=== PATIENT | female | born 1995 | race Caucasian/White ===

== ENCOUNTER 2016-11-27 20:53 | Observation (INO) | payer OTHER ==
[2016-11-27] MEDS ORDERED: methylPREDNISolone SOD SUCCI 125 MG/2 ML VIAL IV STA (21:38)
--- NOTE | 2016-11-27 21:49 | ED ---
General Adult HPI - General Chief complaint: Neuro Symptoms/Deficit Stated complaint: MS; loss of feeling in right leg Time Seen by Provider: 11/27/16 21:25 Source: patient, family, RN notes reviewed, old records reviewed Mode of arrival: ambulatory Limitations: no limitations - History of Present Illness Initial comments: Chief complaint history of present illness this is a 21-year-old female with acute exacerbation of her MS. Patient reports several hours ago she started having numbness tingling to her right lower extremity. She reports she walk several steps in the leg almost goes out. She's had this happen before because of her MS. No other symptoms. - Related Data Home Medications Medication Instructions Recorded Confirmed No Known Home Medications [No 11/27/16 11/27/16 Known Home Medications] Allergies Allergy/AdvReac Type Severity Reaction Status Date / Time No Known Allergies Allergy Verified 11/27/16 21:17 Review of Systems ROS Statement: Those systems with pertinent positive or pertinent negative responses have been documented in the HPI. review of systems no headache chest pain shortness breath GI/ problems. Chief complaint has noted above weakness right leg decreased sensation from her knee down. All systems were otherwise reviewed.Past medical problems diagnosis of MS. Surgeries none. Family history no cancers or MS. Patient denies ALLERGIES nonsmoker nondrinker. ROS Other: All systems not noted in ROS Statement are negative. Past Medical History Past Medical History: Neurologic Disorder Additional Past Medical History / Comment(s): MS History of Any Multi-Drug Resistant Organisms: None Reported Past Surgical History: No Surgical Hx Reported Past Anesthesia/Blood Transfusion Reactions: No Reported Reaction Past Psychological History: No Psychological Hx Reported Smoking Status: Never smoker Past Alcohol Use History: Occasional Past Drug Use History: None Reported - Past Family History Mother Family Medical History: No Reported History General Exam - General Exam Comments Initial Comments: General: The patient is awake and alert,planes of weakness and numbness to her right lower extremity. Vital signs shows temperature 98.1 pulse 120 respiratory rate 20 pulse ox 99% room air blood pressure 1 weight over a 69. Eye: Pupils are equal, round and reactive to light, extra-ocular movements are intact ; there is normal conjunctiva bilaterally. No signs of icterus. Ears, nose, mouth and throat: There are moist mucous membranes Neck: The neck is supple, there is no tenderness Cardiovascular: There is a regular rate and rhythm. No murmur, rub or gallop is appreciated. Respiratory: Lungs are clear to auscultation, respirations are non-labored, breath sounds are equal. No wheezes, stridor, rales, or rhonchi. Gastrointestinal: at stomach no nausea no vomiting no diarrhea. Back: no back pain. Musculoskeletal: upper or lower extremities normal except for weakness over the past several hours to her right leg from her knee down. Able to walk several steps at a time but then she has to stop. This occurred before exacerbation of her MS. Neurological: history of MS. Current problem includes right leg from her knee including her foot. She is able to ambulate weekly for several steps before she has to stop. Skin: Skin is warm and dry and no rashes or lesions are noted. Limitations: no limitations Course Vital Signs 11/27/16 20:59 Temperature 98.1 F Pulse Rate 120 H Respiratory 20 Rate Blood Pressure 108/69 O2 Sat by Pulse 99 Oximetry Medical Decision Making - Medical Decision Making and discussed the case with the patient's neurologist Dr. escobar. He recommends admission. With Solu-Medrol 250 3 times a day with Accu-Cheks and sliding scale. patient be admitted to [facility] with consultation from Dr. Nugent. Disposition Clinical Impression: MS (multiple sclerosis) Disposition: ADMITTED IP TO THIS HOSP Condition: Fair Referrals: Katherine Allen MD [Primary Care Provider] - 1-2 days
[2016-11-27] MEDS ORDERED: NALOXONE 0.4 MG/ML 1 ML VIAL IV PRN (21:50)
[2016-11-27] MEDS ORDERED: methylPREDNISolone SOD SUCCI 125 MG/2 ML VIAL IV SCH (22:00)
[2016-11-27 22:02] LABS: Basophils % (A) 1 %; CH 30.1; CHCM 35.6; Eosinophils % (A) 0 %; HCT 41.8 % (34.0-46.0); HDW 2.84; HGB 14.3 gm/dL (11.4-16.0); Luc # (Auto) 0.19; Luc % (Auto) 3; Lymphocytes # (A) 2.5 k/uL (1.0-4.8); Lymphocytes % (A) 34 %; MCHC 34.1 g/dL (31.0-37.0); Mean Platelet Volume 7.5; Monocytes # (A) 0.4 k/uL (0-1.0); Monocytes % (A) 5 %; Neutrophils # (A) 4.2 k/uL (1.3-7.7); Neutrophils % (A) 57 %; RBC 4.92 m/uL (3.80-5.40); RDW 13.8 % (11.5-15.5); WBC 7.3 k/uL (3.8-10.6); WBC (Perox) 7.01
[2016-11-27] MEDS: SODIUM CHLORIDE 0.9% 1,000 ML IV SCH (22:04)
[2016-11-27 22:11] LABS: ALT 41 U/L (9-52); AST 24 U/L (14-36); Alkaline Phosphatase 120 U/L (38-126); Anion Gap 18 mmol/L; Blood Urea Nitrogen 5 mg/dL (7-17); Calcium 9.5 mg/dL (8.4-10.2); Carbon Dioxide 22 mmol/L (22-30); Chloride 107 mmol/L (98-107); Glucose 89 mg/dL (74-99); Non-African American GFR(MDRD) >60 (>60 ml/min/1.73 sqM); Potassium 3.5 mmol/L (3.5-5.1); Sodium 147 mmol/L (137-145); Total Bilirubin 0.2 mg/dL (0.2-1.3); Total Protein 8.6 g/dL (6.3-8.2)
[2016-11-27 23:06] VITALS: BMI 35.6
[2016-11-27] MEDS: IBUPROFEN 400 MG TAB PO PRN (23:26)
[2016-11-28] MEDS: IBUPROFEN 400 MG TAB PO PRN ×3 (04:46→23:01)
[2016-11-28] MEDS: methylPREDNISolone SOD SUCCI 250 MG in SODIUM CHLORIDE 0.9% 100 ML IVPB SCH ×4 (04:48→23:46)
[2016-11-28 07:17] LABS: Glucose,Whole Blood 150 mg/dL (75-99)
[2016-11-28] MEDS ORDERED: methylPREDNISolone SOD SUCCI 250 MG in SODIUM CHLORIDE 0.9% 100 ML IVPB SCH (08:00)
[2016-11-28] MEDS: FAMOTIDINE 20 MG TAB PO SCH ×2 (08:13→20:37)
[2016-11-28] MEDS: INSULIN LISPRO (humaLOG) 300 UNIT/3 ML VIAL SQ SCH ×4 (08:13→21:33)
[2016-11-28] MEDS ORDERED: LORazepam 2 MG/ML SYRINGE ONE (10:52)
[2016-11-28] MEDS: SODIUM CHLORIDE 0.9% 1,000 ML IV SCH (12:04)
[2016-11-28 12:11] LABS: Glucose,Whole Blood 121 mg/dL (75-99)
[2016-11-28 13:01] LABS: Hemoglobin A1C 5.5 % (4.2-6.1)
--- NOTE | 2016-11-28 13:19 | MR ---
EXAMINATION TYPE: MR brain wo/w con DATE OF EXAM: 11/28/2016 COMPARISON: Brain CT 05/26/2015, MR brain 10/01/2014 HISTORY: Patient with right leg weakness and Multiple Sclerosis TECHNIQUE: Multiplanar, multisequence images of the brain and brainstem is performed without and with IV contras t, utilizing 20 mL intravenous MultiHance . FINDINGS: Diffusion weighted images demonstrate no evidence of a recent infarct or other diffusion ab normality. There is no extra-axial fluid collection. Adjacent to the temporal horn of the right late ral ventricle in the subcortical white matter there is a focus of hyperintensity on inversion recover y and T2-weighted sequences measuring 7 mm in diameter which was not present on prior exam. No other significant interval change evident. No abnormal enhancement following contrast administration. No he morrhage or hydrocephalus. Brain volume is age appropriate. Cerebellopontine angles, corpus callosum, pituitary, cervical medullary junction are within normal limits. Midline structures demonstrate norm al morphology. The craniocervical junction appears within normal limits. Post contrast images demon strate no abnormal enhancement. The dural venous sinuses appear patent. The visualized sinuses are cl ear and the globes are intact. IMPRESSION: There is a new multiple sclerosis plaque in the right temporal lobe as described. The exa m is otherwise stable.
[2016-11-28] MEDS ORDERED: LORazepam 2 MG/ML SYRINGE IV ONE (13:30)
--- NOTE | 2016-11-28 15:39 | P.HPIM ---
History of Present Illness H&P Date: 11/28/16 Chief Complaint: Right lower extremity numbness. This is a 21-year-old female was diagnosed with multiple sclerosis by Dr. liang of comes in to the hospital with complaints of sudden onset right lower extremity numbness. Patient last had a relapse of multiple sclerosis or 1 year 8 months ago. Patient was on a control medication prior to that however got thereafter stopped taking the medication Patient denies having any headaches change in vision and chest pain nausea vomiting abdominal pain loss of bowel or bladder function. Patient states that she has sustained a fall due to the numbness. States that she believes she has enough strength however does have no positional sense. Review of Systems All systems: negative Past Medical History Past Medical History: Neurologic Disorder Additional Past Medical History / Comment(s): MS History of Any Multi-Drug Resistant Organisms: None Reported Past Surgical History: No Surgical Hx Reported Past Anesthesia/Blood Transfusion Reactions: No Reported Reaction Past Psychological History: No Psychological Hx Reported Smoking Status: Never smoker Past Alcohol Use History: Occasional Past Drug Use History: None Reported - Past Family History Mother Family Medical History: No Reported History Father Family Medical History: No Reported History Medications and Allergies Home Medications Medication Instructions Recorded Confirmed Type No Known Home Medications [No 11/27/16 11/27/16 History Known Home Medications] Allergies Allergy/AdvReac Type Severity Reaction Status Date / Time No Known Allergies Allergy Verified 11/27/16 21:17 Physical Exam Vitals: Vital Signs Temp Pulse Pulse Pulse Resp BP BP 11/28/16 13:04 98.3 F 95 20 102/56 11/28/16 08:25 97.9 F 82 18 122/70 11/28/16 04:00 98.1 F 90 18 97/58 11/27/16 23:00 97.8 F 99 18 109/71 11/27/16 22:45 97.8 F 99 18 109/71 11/27/16 22:41 97.9 F 101 H 18 110/80 11/27/16 20:59 98.1 F 120 H 20 108/69 Pulse Ox 11/28/16 13:04 95 11/28/16 08:25 97 11/28/16 04:00 96 11/27/16 23:00 98 11/27/16 22:45 98 11/27/16 22:41 99 11/27/16 20:59 99 Intake and Output 11/28/16 11/28/16 11/28/16 06:59 14:59 22:59 Intake Total 450 Balance 450 Intake: Oral 450 Other: Voiding Method Toilet # Voids 1 1 Physical exam Gen. appearance oriented 3 in no distress Neck is supple no JVD Lungs good air entry clear to auscultation no rhonchi or wheezing Heart S1-S2 heard regular rate and rhythm no murmurs appreciated Abdomen is soft nontender no organomegaly bowel sounds are intact Neurologically cranial nerves II-12 grossly intact no focal motor deficits noted. Right lower extremity fine touch is impaired Touch is noted Position sense is impaired. Strength is 5 out of 5 in all 4 activities. EOMI PERRLA Skin no abnormalities appreciated Results CBC & Chem 7: 11/27/16 21:48 11/27/16 21:48 Labs: Abnormal Lab Results - Last 24 Hours (Table) 11/27/16 11/28/16 11/28/16 Range/Units 21:48 07:15 12:07 Sodium 147 H (137-145) mmol/L BUN 5 L (7-17) mg/dL POC Glucose (mg/dL) 150 H 121 H (75-99) mg/dL Total Protein 8.6 H (6.3-8.2) g/dL Thrombosis Risk Factor Assmnt - Choose All That Apply Each Factor Represents 1 point: Obesity (BMI >25) Other Risk Factors: No Other congenital or acquired thrombophilia - If yes, enter type in comment: No Thrombosis Risk Factor Assessment Total Risk Factor Score: 1 Thrombosis Risk Factor Assessment Level: Low Risk Assessment and Plan Plan: #1 acute exacerbation of multiple sclerosis Plan MRI of the brain Neuro stress dose of steroids Neurology recommendations are noted GI prophylaxis Frequent neuro checks
[2016-11-28 16:58] LABS: Glucose,Whole Blood 141 mg/dL (75-99)
[2016-11-28 21:34] LABS: Glucose,Whole Blood 125 mg/dL (75-99)
[2016-11-29] MEDS: SODIUM CHLORIDE 0.9% 1,000 ML IV SCH ×2 (03:31→17:58)
[2016-11-29] MEDS: methylPREDNISolone SOD SUCCI 250 MG in SODIUM CHLORIDE 0.9% 100 ML IVPB SCH ×3 (05:44→18:00)
[2016-11-29 07:32] LABS: Glucose,Whole Blood 132 mg/dL (75-99)
[2016-11-29] MEDS: INSULIN LISPRO (humaLOG) 300 UNIT/3 ML VIAL SQ SCH ×4 (07:53→21:32)
[2016-11-29] MEDS: FAMOTIDINE 20 MG TAB PO SCH ×2 (11:58→21:33)
[2016-11-29 12:06] LABS: Glucose,Whole Blood 127 mg/dL (75-99)
[2016-11-29 17:12] LABS: Glucose,Whole Blood 139 mg/dL (75-99)
[2016-11-29 21:21] LABS: Glucose,Whole Blood 144 mg/dL (75-99)
[2016-11-30] MEDS: methylPREDNISolone SOD SUCCI 250 MG in SODIUM CHLORIDE 0.9% 100 ML IVPB SCH ×5 (05:57→19:19)
[2016-11-30 07:24] LABS: Glucose,Whole Blood 134 mg/dL (75-99)
[2016-11-30] MEDS: INSULIN LISPRO (humaLOG) 300 UNIT/3 ML VIAL SQ SCH ×4 (08:02→21:21)
[2016-11-30] MEDS: FAMOTIDINE 20 MG TAB PO SCH ×2 (08:02→21:16)
[2016-11-30] MEDS: SODIUM CHLORIDE 0.9% 1,000 ML IV SCH ×2 (08:05→22:35)
[2016-11-30] MEDS: BUTALB/APAP/CAFF 50-325-40MG TAB PO PRN ×3 (08:34→17:42)
--- NOTE | 2016-11-30 11:48 | P.PN ---
Subjective Progress note being dictated for Dr. Draper Interval history:This is a 21-year-old female was diagnosed with multiple sclerosis by Dr. liang of comes in to the hospital with complaints of sudden onset right lower extremity numbness. Patient last had a relapse of multiple sclerosis or 1 year 8 months ago. Patient was on a control medication prior to that however got thereafter stopped taking the medication. Patient denies having any headaches change in vision and chest pain nausea vomiting abdominal pain loss of bowel or bladder function. Patient states that she has sustained a fall due to the numbness. States that she believes she has enough strength however does have no positional sense. 11/29/2016 maintained on high-dose IV steroids. Feels stronger, numbness improving. Requiring walker to ambulate. MRI reporting new multiple sclerosis plaque in the right temporal lobe. Denies chest pain, palpitations or increasing shortness of breath. 11/30/2016 developed a headache last night that persists. Received Fioricet, improving. Numbness continues to improve. Continues to require a walker with ambulation. Last dose of steroids scheduled for midnight. Objective - Vital Signs Vital signs: Vital Signs Temp 97.8 F 11/29/16 20:11 Pulse 87 11/29/16 20:11 Resp 20 11/29/16 20:11 BP 139/76 11/29/16 20:11 Pulse Ox 96 11/29/16 20:11 Intake & Output 11/29/16 11/29/16 11/30/16 06:59 18:59 06:59 Intake Total 400 Balance 400 Intake: Oral 400 Other: Voiding Method Toilet # Voids 1 1 - Exam Gen. appearance oriented 3 in no acute distress Neck is supple no JVD, oral mucosa moist Lungs clear to auscultation no rhonchi , crackles or wheezing Heart S1-S2 heard regular rate and rhythm no murmurs, rubs or gallops Abdomen is soft nontender no organomegaly bowel sounds present Neurologically cranial nerves II-12 grossly intact no focal motor deficits noted. Right lower extremity fine touch is mildly impaired-improving, Strength is 5 out of 5 in all 4 activities. EOMI PERRLA Skin no abnormalities appreciated - Labs CBC & Chem 7: 11/27/16 21:48 11/27/16 21:48 Labs: Abnormal Lab Results - Last 24 Hours (Table) 11/29/16 11/29/16 11/29/16 Range/Units 07:28 12:04 17:09 POC Glucose (mg/dL) 132 H 127 H 139 H (75-99) mg/dL 11/29/16 Range/Units 21:11 POC Glucose (mg/dL) 144 H (75-99) mg/dL Assessment and Plan Plan: #1 acute exacerbation of multiple sclerosis Plan: Continue on current medication regime ,monitoring and symptomatic treatment. Continue on high-dose IV steroids with last dose scheduled at midnight. Discharge planning in progress for a.m. The impression and plan of care has been dictated as directed. : I performed a H&P examination of this patient and discussed the same with the dictator. I agree with the dictator's note. Any additional findings/opinions/ etc. will be noted.
[2016-11-30 12:11] LABS: Glucose,Whole Blood 123 mg/dL (75-99)
[2016-11-30 17:46] LABS: Glucose,Whole Blood 122 mg/dL (75-99)
[2016-11-30 20:57] LABS: Glucose,Whole Blood 116 mg/dL (75-99)
[2016-12-01] MEDS: methylPREDNISolone SOD SUCCI 250 MG in SODIUM CHLORIDE 0.9% 100 ML IVPB SCH (00:30)
[2016-12-01] MEDS: BUTALB/APAP/CAFF 50-325-40MG TAB PO PRN ×2 (01:01→15:27)
[2016-12-01 06:48] LABS: Basophils % (A) 0 %; CH 28.8; CHCM 34.5; Eosinophils % (A) 0 %; HCT 37.2 % (34.0-46.0); HGB 12.9 gm/dL (11.4-16.0); Luc # (Auto) 0.12; Luc % (Auto) 1; Lymphocytes # (A) 1.4 k/uL (1.0-4.8); Lymphocytes % (A) 17 %; MCHC 34.6 g/dL (31.0-37.0); MCV 83.9 fL (80.0-100.0); Mean Platelet Volume 7.8; Monocytes # (A) 0.2 k/uL (0-1.0); Monocytes % (A) 3 %; Neutrophils # (A) 6.5 k/uL (1.3-7.7); Neutrophils % (A) 79 %; RBC 4.44 m/uL (3.80-5.40); RDW 12.7 % (11.5-15.5); WBC 8.2 k/uL (3.8-10.6); WBC (Perox) 9.15
[2016-12-01 07:01] LABS: Anion Gap 8 mmol/L; Blood Urea Nitrogen 15 mg/dL (7-17); Calcium 8.6 mg/dL (8.4-10.2); Carbon Dioxide 26 mmol/L (22-30); Chloride 105 mmol/L (98-107); Glucose 135 mg/dL (74-99); Non-African American GFR(MDRD) >60 (>60 ml/min/1.73 sqM); Potassium 3.9 mmol/L (3.5-5.1); Sodium 139 mmol/L (137-145)
[2016-12-01 07:03] LABS: Glucose,Whole Blood 133 mg/dL (75-99)
[2016-12-01] MEDS: INSULIN LISPRO (humaLOG) 300 UNIT/3 ML VIAL SQ SCH ×3 (08:01→17:57)
[2016-12-01] MEDS: FAMOTIDINE 20 MG TAB PO SCH (09:32)
[2016-12-01 12:22] LABS: Glucose,Whole Blood 148 mg/dL (75-99)
--- NOTE | 2016-12-01 15:05 | P.DS ---
Providers Date of admission: 11/27/16 21:54 Expected date of discharge: 12/01/16 Attending physician: Kartik Draper MD Consults: 11/27/16 21:51 Consult Physician Urgent Consulting Provider: Dani Nugent Consult Reason/Comments: right leg weakness, history of MS Do you want consulting provider notified?: Yes, Notify in am Primary care physician: Katherine Allen Hospital Course: Final Diagnoses: #1 acute exacerbation of multiple sclerosis Hospital course: This is a 21-year-old female was diagnosed with multiple sclerosis by Dr. Macario,admitted with complaints of sudden onset right lower extremity numbness. Patient last had a relapse of multiple sclerosis 1 year 8 months ago. Patient was on a control medication prior to that however got thereafter stopped taking the medication.Patient states that she has sustained a fall due to the numbness. MRI reporting new multiple sclerosis plaque in the right temporal lobe. Maintained on high-dose IV steroids. Significant clinical improvement. Patient being discharged home in a stable condition with guarded prognosis, pending neurology's clearance. Maintenance/control medication as per neurology. The impression and plan of care has been dictated as directed.as a scribe. : I performed a H&P examination of this patient and discussed the same with the dictator. I agree with the dictator's note. Any additional findings/opinions/ etc. will be noted. Patient Condition at Discharge: Stable Plan - Discharge Summary New Discharge Prescriptions: No Action No Known Home Medications [No Known Home Medications] Discharge Medication List No Known Home Medications [No Known Home Medications] 11/27/16 [History] Follow up Appointment(s)/Referral(s): Katherine Allen MD [Primary Care Provider] - 3 Days Mushtaq Anthony MD [STAFF PHYSICIAN] - 10 Days Activity/Diet/Wound Care/Special Instructions: Walker ordered through [facility]: #[phone] patient has been off of Tecsedra 1.[address] Anthony,; maintenance medication as per neurology. Steroid taper if needed as per neurology.Case management to arrange walker for discharge. OP PT/OT. Diet: Cardiac Activity: limited TIll F/U
[2016-12-01 16:59] LABS: Glucose,Whole Blood 135 mg/dL (75-99)
[2016-12-01 17:01] VITALS: BP 112/74; PULSE 58; RESP 16; TEMP 98.2
--- NOTE | 2016-12-01 18:57 | P.PN ---
Subjective This patient is a 21-year-old right-handed white female who was admitted to the hospital with symptoms of MS exacerbation. Patient was admitted with right lower extremity weakness and numbness. She has a history of multiple sclerosis diagnosed several years ago. She is not on any interferon therapy at this time. She was started on IV Solu-Medrol for major treatment of MS exacerbation. She was able to complete MRI of the brain yesterday which reveals a new area of plaque lesion consistent with MS in the right temporal lobe. Patient continues to do fairly well in terms of her current MS exacerbation. She still has right leg weakness. She will need to complete 3 days of inpatient IV Solu-Medrol therapy. She will need tapering doses of prednisone at the time of discharge. The patient has completed 3 day course of IV Solu-Medrol. We recommend that she taper down with oral prednisone over the next 6 weeks. She is to use Axid as well to protect her stomach during this course of therapy. She should follow-up with her primary care physician and her neurologist soon after discharge from the hospital. We will continue close neurological follow-up for the patient. Her overall prognosis at this time remains guarded. Objective - Vital Signs Vital signs: Vital Signs Temp 98.2 F 12/01/16 16:20 Pulse 58 L 12/01/16 16:20 Resp 16 12/01/16 16:20 BP 112/74 12/01/16 16:20 Pulse Ox 95 12/01/16 16:20 Intake & Output 11/30/16 12/01/16 12/01/16 18:59 06:59 18:59 Intake Total 240 400 Balance 240 400 Intake: Oral 240 400 Other: Voiding Method Toilet Toilet # Voids 1 - Exam Physical examination: PHYSICAL EXAMINATION: Patient is resting comfortably in bed. VITAL SIGNS: Blood pressure is [112/74]. Heart rate is [58]. Respiration is [16] . Temperature is [98.2]. HEENT: Head is atraumatic, neck is supple, there were no carotid bruits. CHEST: Lungs are clear to auscultation and percussion. CARDIAC: S1, S2 normal rate and rhythm. There is no murmur. ABDOMEN: Soft and nontender. Bowel sounds are present. EXTREMITIES: There is no pedal edema. Peripheral pulses are present. Neurological examination: Patient's neurological examination is unchanged from yesterday. - Labs CBC & Chem 7: 12/01/16 06:13 12/01/16 06:13 Labs: Abnormal Lab Results - Last 24 Hours (Table) 11/30/16 12/01/16 12/01/16 Range/Units 20:54 06:13 07:01 Glucose 135 H (74-99) mg/dL POC Glucose (mg/dL) 116 H 133 H (75-99) mg/dL 12/01/16 12/01/16 Range/Units 12:15 16:56 Glucose (74-99) mg/dL POC Glucose (mg/dL) 148 H 135 H (75-99) mg/dL Assessment and Plan (1) Multiple sclerosis Status: Chronic Code(s): G35 - MULTIPLE SCLEROSIS Plan: This patient was admitted for acute right leg weakness. She has a history of multiple sclerosis. She was started on IV Solu-Medrol on admission. She underwent MRI of the brain yesterday which was reviewed. MRI reveals a single isolated lesion suggesting MS plaque involving the right temporal lobe. No other areas of acute changes were noted. Patient is currently completing her IV Solu-Medrol therapy for her MS exacerbation. Would recommend sending her home on tapering doses of oral prednisone. The patient has responded well to 3 days of IV Solu-Medrol. She has noted improvement with right leg weakness. She has been able to ambulate with the use of her walker today. We recommend that she should be placed on oral prednisone taper over the next 6 weeks. She' ll be placed on Axid to protect her stomach. She should follow-up with her primary care physician and her neurologist soon after discharge from hospital. Patient is stable today for discharge home. We have discussed her recent MRI findings with her in detail. We have recommended that she should consider starting on a interferon therapy for long-term management of her MS. Her overall prognosis at this time remains guarded. We have discussed all of her current findings and recommendations with her in detail today. She is to be discharged home later this evening.
== END 2016-12-01 18:35 | disposition home or self-care (01) ==
LOC: EC 20:53 → 6PED 21:54 → INTOOBSV 21:54
PROVIDERS: ADMIT Internal Medicine; ATTEND Internal Medicine
DX: G35 Multiple sclerosis (principal); E66.9 Obesity, unspecified; Z68.35 Body mass index [BMI] 35.0-35.9, adult; Z79.52 Long term (current) use of systemic steroids
CPT/HCPCS: 96361 ×6; 96365; 96366 ×4; 96375 ×2; 99285; 36415; 95819; 97116; 97162; 80053; 80048; 83036; 85025 ×2; 70553; G0378 ×5; J2060; J2930 ×5; A9577

== ENCOUNTER 2017-06-29 17:12 | Observation (INO) | payer OTHER ==
[2017-06-29] MEDS ORDERED: ONDANSETRON 4 MG/2 ML VIAL IVP STA (17:44)
[2017-06-29] MEDS ORDERED: methylPREDNISolone SOD SUCCI 250 MG in SODIUM CHLORIDE 0.9% 100 ML IVPB STA (17:45)
[2017-06-29] MEDS ORDERED: SODIUM CHLORIDE 0.9% 1,000 ML IV ONE (17:46)
[2017-06-29 18:09] LABS: Basophils % (A) 0 %; Eosinophils # (A) 0.1 k/uL (0-0.7); Eosinophils % (A) 1 %; HCT 37.8 % (34.0-46.0); HGB 12.6 gm/dL (11.4-16.0); Lymphocytes % (A) 19 %; MCH 27.5 pg (25.0-35.0); MCHC 33.4 g/dL (31.0-37.0); MCV 82.4 fL (80.0-100.0); Mean Platelet Volume 7.2; Monocytes # (A) 0.5 k/uL (0-1.0); Monocytes % (A) 5 %; Neutrophils # (A) 7.5 k/uL (1.3-7.7); Neutrophils % (A) 73 %; Platelet Count 299 k/uL (150-450); RBC 4.59 m/uL (3.80-5.40); RDW 13.2 % (11.5-15.5); WBC 10.3 k/uL (3.8-10.6)
--- NOTE | 2017-06-29 18:16 | ED ---
Nausea/Vomiting/Diarrhea HPI - General Source: patient Mode of arrival: ambulatory Limitations: no limitations <Malinda Ribeiro - Last Filed: 06/29/17 20:33> <Khurram Palomo - Last Filed: 06/29/17 21:16> - General Chief complaint: Nausea/Vomiting/Diarrhea Stated complaint: syncope x 2, dizziness Time Seen by Provider: 06/29/17 17:22 - History of Present Illness Initial comments: 21-year-old female patient with a past medical history significant for multiple sclerosis presents to the emergency department today with complaints of dizziness and vomiting. Patient states the dizziness started for her around 10 AM. States that whenever she opens her eyes it appears that the room is spinning. She states that a couple of hours ago she started having vomiting related to this. Patient states that she is also experiencing some weakness in her bilateral lower extremities. States that she passed out twice today after vomiting. Patient states that her MS affects her ocular nerve and her legs and does cause dizziness. She states that her dizziness is worse than usual. She denies any headache, blurred vision, double vision, numbness, tingling, abdominal pain, diarrhea, or constipation. She denies any fevers or chills. Denies any sick contacts or recent travel. Denies any recent alcohol or drug use. States that she does have an Implanon implant in the left upper arm. Had a recent negative test. (Malinda Ribeiro) - Related Data Home Medications Medication Instructions Recorded Confirmed No Known Home Medications [No 11/27/16 06/29/17 Known Home Medications] Allergies Allergy/AdvReac Type Severity Reaction Status Date / Time No Known Allergies Allergy Verified 06/29/17 17:57 Review of Systems ROS Other: All systems not noted in ROS Statement are negative. <Malinda Ribeiro - Last Filed: 06/29/17 20:33> ROS Other: All systems not noted in ROS Statement are negative. <Khurram Palomo - Last Filed: 06/29/17 21:16> ROS Statement: Those systems with pertinent positive or pertinent negative responses have been documented in the HPI. Past Medical History Past Medical History: Neurologic Disorder Additional Past Medical History / Comment(s): MS History of Any Multi-Drug Resistant Organisms: None Reported Past Surgical History: No Surgical Hx Reported Past Anesthesia/Blood Transfusion Reactions: No Reported Reaction Past Psychological History: No Psychological Hx Reported Smoking Status: Never smoker Past Alcohol Use History: Occasional Past Drug Use History: None Reported - Past Family History Mother Family Medical History: No Reported History Father Family Medical History: No Reported History <Malinda Ribeiro - Last Filed: 06/29/17 20:33> General Exam Limitations: no limitations General appearance: alert, in no apparent distress, other (This is a well- developed, well-nourished adult female patient in mild distress. Vital signs upon presentation are temperature 97.2F, pulse 74, respirations 18, blood pressure 111/75, pulse ox 97% on room air.) Eye exam: Present: normal appearance, PERRL, EOMI. Absent: scleral icterus, conjunctival injection, nystagmus, periorbital swelling ENT exam: Present: normal exam, normal oropharynx, mucous membranes moist Respiratory exam: Present: normal lung sounds bilaterally. Absent: respiratory distress, wheezes, rales, rhonchi, stridor Cardiovascular Exam: Present: regular rate, normal rhythm, normal heart sounds. Absent: systolic murmur, diastolic murmur, rubs, gallop, clicks GI/Abdominal exam: Present: soft, normal bowel sounds. Absent: distended, tenderness, guarding, rebound, rigid Neurological exam: Present: alert, oriented X3, CN II-XII intact Expanded Speech: Present: fluid speech Cranial nerves: EOM's Intact: Normal, Nystagmus: Normal Cerebellar function: Finger to Nose: Normal Motor strength exam: RUE: 5, LUE: 5, RLE: 5, LLE: 5 Eye Response: (4) open spontaneously Motor Response: (6) obeys commands Verbal Response: (5) oriented Familia Total: 15 Psychiatric exam: Present: normal affect, normal mood Skin exam: Present: warm, dry, intact, normal color. Absent: rash <Malinda Ribeiro - Last Filed: 06/29/17 20:33> Course <Malinda Ribeiro - Last Filed: 06/29/17 20:33> <Khurram Palomo - Last Filed: 06/29/17 21:16> Vital Signs 06/29/17 06/29/17 06/29/17 17:14 18:49 19:16 Temperature 97.2 F L Pulse Rate 74 71 70 Respiratory 18 16 16 Rate Blood Pressure 111/75 108/58 93/58 O2 Sat by Pulse 97 98 100 Oximetry 06/29/17 20:32 Temperature 98.0 F Pulse Rate 70 Respiratory 16 Rate Blood Pressure 102/52 O2 Sat by Pulse 96 Oximetry - Reevaluation(s) Reevaluation #1: 06/29/17 21:16 And P supervision: I did personally evaluate this case and discussed the findings I do agree with the assessment and plan patient will be admitted. (Khurram Palomo) Medical Decision Making - Lab Data Result diagrams: 06/29/17 18:02 06/29/17 18:02 - EKG Data -: EKG Interpreted by Me <Malinda Ribeiro - Last Filed: 06/29/17 20:33> - Lab Data Result diagrams: 06/29/17 18:02 06/29/17 18:02 <Khurram Palomo - Last Filed: 06/29/17 21:16> - Medical Decision Making 21-year-old female patient presented to the emergency department today for complaints of dizziness, syncope, vomiting, and leg weakness. Physical examination was unremarkable. Patient is neurologically intact. Labs reviewed and showed positive nitrite and a urine. HCG was negative. Patient does have a history of multiple sclerosis, states that her symptoms include dizziness, visual disturbance, and leg weakness usually. We did administer 250 mg of Solu- Medrol, IV fluids, and Zofran here in the department. The patient states that her symptoms are improved, she is able to keep her eyes open without any dizziness at this time. I did discuss findings and results with her. She will be admitted at this time for continued steroids and possible MS exacerbation. We will consult neurology. Patient verbalizes understanding and agrees with the plan. (Malinda Ribeiro) - Lab Data Lab Results 06/29/17 06/29/17 06/29/17 Range/Units 18:02 18:02 18:02 WBC 10.3 (3.8-10.6) k/uL RBC 4.59 (3.80-5.40) m/uL Hgb 12.6 (11.4-16.0) gm/dL Hct 37.8 (34.0-46.0) % MCV 82.4 (80.0-100.0) fL MCH 27.5 (25.0-35.0) pg MCHC 33.4 (31.0-37.0) g/dL RDW 13.2 (11.5-15.5) % Plt Count 299 (150-450) k/uL Neutrophils % 73 % Lymphocytes % 19 % Monocytes % 5 % Eosinophils % 1 % Basophils % 0 % Neutrophils # 7.5 (1.3-7.7) k/uL Lymphocytes # 2.0 (1.0-4.8) k/uL Monocytes # 0.5 (0-1.0) k/uL Eosinophils # 0.1 (0-0.7) k/uL Basophils # 0.0 (0-0.2) k/uL Sodium 141 (137-145) mmol/L Potassium 4.1 (3.5-5.1) mmol/L Chloride 105 (98-107) mmol/L Carbon Dioxide 23 (22-30) mmol/L Anion Gap 13 mmol/L BUN 12 (7-17) mg/dL Creatinine 0.60 (0.52-1.04) mg/dL Est GFR (CKD-EPI)AfAm >90 (>60 ml/min/1.73 sqM) Est GFR (CKD-EPI)NonAf >90 (>60 ml/min/1.73 sqM) Glucose 103 H (74-99) mg/dL Calcium 9.7 (8.4-10.2) mg/dL Total Bilirubin 0.2 (0.2-1.3) mg/dL AST 19 (14-36) U/L ALT 25 (9-52) U/L Alkaline Phosphatase 89 (38-126) U/L Total Protein 7.9 (6.3-8.2) g/dL Albumin 4.1 (3.5-5.0) g/dL HCG, Quant <2.4 mIU/mL Urine Color Urine Appearance (Clear) Urine pH (5.0-8.0) Ur Specific [place] (1.001-1.035) Urine Protein (Negative) Urine Glucose (UA) (Negative) Urine Ketones (Negative) Urine Blood (Negative) Urine Nitrite (Negative) Urine Bilirubin (Negative) Urine Urobilinogen (<2.0) mg/dL Ur Leukocyte Esterase (Negative) Urine RBC (0-5) /hpf Urine WBC (0-5) /hpf Ur Squamous Epith Cells (0-4) /hpf Urine Bacteria (None) /hpf Urine Mucus (None) /hpf 06/29/17 Range/Units 19:15 WBC (3.8-10.6) k/uL RBC (3.80-5.40) m/uL Hgb (11.4-16.0) gm/dL Hct (34.0-46.0) % MCV (80.0-100.0) fL MCH (25.0-35.0) pg MCHC (31.0-37.0) g/dL RDW (11.5-15.5) % Plt Count (150-450) k/uL Neutrophils % % Lymphocytes % % Monocytes % % Eosinophils % % Basophils % % Neutrophils # (1.3-7.7) k/uL Lymphocytes # (1.0-4.8) k/uL Monocytes # (0-1.0) k/uL Eosinophils # (0-0.7) k/uL Basophils # (0-0.2) k/uL Sodium (137-145) mmol/L Potassium (3.5-5.1) mmol/L Chloride (98-107) mmol/L Carbon Dioxide (22-30) mmol/L Anion Gap mmol/L BUN (7-17) mg/dL Creatinine (0.52-1.04) mg/dL Est GFR (CKD-EPI)AfAm (>60 ml/min/1.73 sqM) Est GFR (CKD-EPI)NonAf (>60 ml/min/1.73 sqM) Glucose (74-99) mg/dL Calcium (8.4-10.2) mg/dL Total Bilirubin (0.2-1.3) mg/dL AST (14-36) U/L ALT (9-52) U/L Alkaline Phosphatase (38-126) U/L Total Protein (6.3-8.2) g/dL Albumin (3.5-5.0) g/dL HCG, Quant mIU/mL Urine Color Light Yellow Urine Appearance Cloudy H (Clear) Urine pH 6.0 (5.0-8.0) Ur Specific [place] 1.012 (1.001-1.035) Urine Protein Negative (Negative) Urine Glucose (UA) Negative (Negative) Urine Ketones Negative (Negative) Urine Blood Negative (Negative) Urine Nitrite Positive H (Negative) Urine Bilirubin Negative (Negative) Urine Urobilinogen <2.0 (<2.0) mg/dL Ur Leukocyte Esterase Small H (Negative) Urine RBC 1 (0-5) /hpf Urine WBC 7 H (0-5) /hpf Ur Squamous Epith Cells 3 (0-4) /hpf Urine Bacteria Many H (None) /hpf Urine Mucus Occasional H (None) /hpf - EKG Data EKG Comments: EKG obtained at 1815 shows normal sinus rhythm with prolonged QT interval. Ventricular rate of 75, IN interval 146, QRS duration 102, QT 4:30, QTC 480. No evidence of ST elevation or depression. (Malinda Ribeiro) Disposition Decision to Admit Reason: Admit from EC Decision Date: 06/29/17 Decision Time: 20:26 <Malinda Ribeiro - Last Filed: 06/29/17 20:33> <Khurram Palomo - Last Filed: 06/29/17 21:16> Clinical Impression: Exacerbation of multiple sclerosis, Dizziness, Urinary tract infection Disposition: ADMITTED IP TO THIS [facility] Condition: Serious
[2017-06-29 19:00] LABS: ALT 25 U/L (9-52); AST 19 U/L (14-36); Albumin 4.1 g/dL (3.5-5.0); Alkaline Phosphatase 89 U/L (38-126); Anion Gap 13 mmol/L; Blood Urea Nitrogen 12 mg/dL (7-17); Calcium 9.7 mg/dL (8.4-10.2); Carbon Dioxide 23 mmol/L (22-30); Chloride 105 mmol/L (98-107); Glucose 103 mg/dL (74-99); Potassium 4.1 mmol/L (3.5-5.1); Sodium 141 mmol/L (137-145); Total Bilirubin 0.2 mg/dL (0.2-1.3); Total Protein 7.9 g/dL (6.3-8.2)
[2017-06-29] MEDS ORDERED: KETOROLAC 30 MG/ML 1 ML VIAL IVP STA (19:27)
[2017-06-29 19:30] LABS: Appearance,Urine Cloudy (Clear); Bacteria,Urine Many /hpf; Bilirubin,Urine Negative (Negative); Blood,Urine Negative (Negative); Color,Urine Light Yellow; Glucose,Urine (UA) Negative (Negative); Ketones,Urine Negative (Negative); Leukocyte Esterase,Urine Small (Negative); Mucus,Urine Occasional /hpf; Nitrite,Urine Positive (Negative); Protein,Urine Negative (Negative); RBC,Urine 1 /hpf (0-5); Specific Gravity,Urine 1.012 (1.001-1.035); Squamous Epithelial Cell,Urine 3 /hpf (0-4); Urobilinogen,Urine <2.0 mg/dL (<2.0); WBC,Urine 7 /hpf (0-5)
[2017-06-29] MEDS ORDERED: NALOXONE 0.4 MG/ML 1 ML VIAL IV PRN (20:22)
[2017-06-29] MEDS ORDERED: ACETAMINOPHEN TAB 325 MG TAB PO PRN (20:22)
[2017-06-29] MEDS ORDERED: cefTRIAXone IN SWFI 1,000 MG/10 ML SYRINGE IVP STA (20:25)
[2017-06-29 21:52] VITALS: BMI 35.5
[2017-06-29] MEDS: SODIUM CHLORIDE 0.9% 1,000 ML IV SCH (22:00)
--- NOTE | 2017-06-30 12:41 | P.HPIM ---
History of Present Illness Patient is a 21-year-old pleasant female with known history of multiple sclerosis, came in with complaints of loss of consciousness had about 3 episodes first episode was documented that she had some shaking denied any loss of bowel or bladder continence tongue bite lasted for 3 minutes first episode and the other 2 episodes only for a few seconds. 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 Patient had some visual problems as today in the right eye in the past had emesis exacerbations are associated with her visual problems, bilateral lower limb weakness. She denied any such symptoms now patient denied any fever chills nausea vomiting cough dysuria. Patient urine is positive for leukocyte esterase and nitrate although patient doesn't have any symptoms of [employer] patient received couple dose of ceftriaxone antibiotics will be discontinued patient may have a symptomatically bacteriuria. Review of Systems REVIEW OF SYSTEMS: CONSTITUTIONAL: No fever, no malaise, no fatigue. HEENT: No recent visual problems or hearing problems. Denied any sore throat. CARDIOVASCULAR: No chest pain, orthopnea, PND, no palpitations, PULMONARY: No shortness of breath, no cough, no hemoptysis. GASTROINTESTINAL: No diarrhea, no nausea, no vomiting, no abdominal pain. Normoactive bowel sounds. NEUROLOGICAL: No headaches, no weakness, no numbness. HEMATOLOGICAL: Denies any bleeding or petechiae. GENITOURINARY: Denies any burning micturition, frequency, or urgency. MUSCULOSKELETAL/RHEUMATOLOGICAL: Denies any joint pain, swelling, or any muscle pain. ENDOCRINE: Denies any polyuria or polydipsia. The rest of the 14-point review of systems is negative. Past Medical History Past Medical History: Neurologic Disorder Additional Past Medical History / Comment(s): MS with diagnosis at age 17 [address] richardson History of Any Multi-Drug Resistant Organisms: None Reported Past Surgical History: No Surgical Hx Reported Past Anesthesia/Blood Transfusion Reactions: No Reported Reaction Past Psychological History: No Psychological Hx Reported Smoking Status: Never smoker Past Alcohol Use History: Occasional Past Drug Use History: None Reported - Past Family History Mother Family Medical History: Hypertension Father Family Medical History: No Reported History Medications and Allergies Home Medications Medication Instructions Recorded Confirmed Type No Known Home Medications [No 11/27/16 06/29/17 History Known Home Medications] Allergies Allergy/AdvReac Type Severity Reaction Status Date / Time No Known Allergies Allergy Verified 06/29/17 17:57 Physical Exam Vitals: Vital Signs Temp Pulse Pulse Resp BP BP Pulse Ox 06/30/17 11:37 98.4 F 76 18 105/61 94 L 06/30/17 08:10 98.0 F 75 17 108/64 96 06/29/17 21:25 98.2 F 71 16 118/70 96 06/29/17 20:32 98.0 F 70 16 102/52 96 06/29/17 19:16 70 16 93/58 100 06/29/17 18:49 71 16 108/58 98 06/29/17 17:14 97.2 F L 74 18 111/75 97 Intake and Output 06/29/17 06/30/17 06/30/17 22:59 06:59 14:59 Intake Total 600 580 Balance 600 580 Intake: Oral 600 580 Other: # Voids 1 1 1 Weight 99.79 kg PHYSICAL EXAMINATION: GENERAL: The patient is alert and oriented x3, not in any acute distress. Well developed, well nourished. HEENT: Pupils are round and equally reacting to light. EOMI. No scleral icterus. No conjunctival pallor. Normocephalic, atraumatic. No pharyngeal erythema. No thyromegaly. CARDIOVASCULAR: S1 and S2 present. No murmurs, rubs, or gallops. PULMONARY: Chest is clear to auscultation, no wheezing or crackles. ABDOMEN: Soft, nontender, nondistended, normoactive bowel sounds. No palpable organomegaly. MUSCULOSKELETAL: No joint swelling or deformity. EXTREMITIES: No cyanosis, clubbing, or pedal edema. NEUROLOGICAL: Gross neurological examination did not reveal any focal deficits. SKIN: No rashes. Results CBC & Chem 7: 06/29/17 18:02 06/29/17 18:02 Labs: Abnormal Lab Results - Last 24 Hours (Table) 06/29/17 06/29/17 Range/Units 18:02 19:15 Glucose 103 H (74-99) mg/dL Urine Appearance Cloudy H (Clear) Urine Nitrite Positive H (Negative) Ur Leukocyte Esterase Small H (Negative) Urine WBC 7 H (0-5) /hpf Urine Bacteria Many H (None) /hpf Urine Mucus Occasional H (None) /hpf Microbiology - Last 24 Hours (Table) 06/29/17 19:15 Urine Culture - Preliminary Urine,Voided Thrombosis Risk Factor Assmnt - Choose All That Apply Each Factor Represents 1 point: Obesity (BMI >25) Other Risk Factors: No Other congenital or acquired thrombophilia - If yes, enter type in comment: No Thrombosis Risk Factor Assessment Total Risk Factor Score: 1 Thrombosis Risk Factor Assessment Level: Low Risk Assessment and Plan Plan: -Syncope: Can be related to her MS exacerbation patient is on IV steroids, and neurology will evaluate the patient my suspicion for seizures is low. We'll Allsop an echocardiogram EKG did not show any significant abnormality. Her blood pressure is on the low normal side which is expected for her age. -Multiple sclerosis with possible exacerbation -Asymptomatic bacteriuria patient will not require any antibiotics for that, ceftriaxone was discontinued and she received couple doses since her admission.
--- NOTE | 2017-06-30 12:45 | P.CONS ---
History of Present Illness - Reason for Consult Possibility of urinary tract infection - History of Present Illness Patient came to the ER yesterday with complaints of somewhat sudden onset mid abdominal pain. The pain is periumbilical. Initially she thought it may be menstrual cramps however it became much more severe in nature and for that reason she wanted this evaluated. She had episodes of nausea and vomiting. She feels a heaviness in the lower abdomen. Pain is worse when standing. No history of similar events. Normal bowel habits recently. No rectal bleeding or melena. No fevers. Her labs a been normal including a lactic acid. Her CAT scan however showed some swirling of the small bowel mesentery with some subtle edema in the small bowel mesentery as well. She was admitted for observation. She says her pain is still coming and going throughout the night although better this morning that was yesterday. Pain ranges from 2-5 out of 10. Only surgical history is a lap valarie. She was told she had scar tissue at that time. No evidence of malrotation on CAT scan given the location of the ligament of [place]. Patient is undergoing the expiratory laparotomy today. Patient denied any dysuria patient doesn't have any fever chills. Patient denied any increased urinary frequency. Patient does have dry cough and patient was diagnosed with the stay pharyngitis for which patient is on ampicillin which is being continued here. Review of Systems REVIEW OF SYSTEMS: CONSTITUTIONAL: No fever, no malaise, no fatigue. HEENT: As mentioned in HPI CARDIOVASCULAR: No chest pain, orthopnea, PND, no palpitations, no syncope. PULMONARY: No shortness of breath, no cough, no hemoptysis. GASTROINTESTINAL: As mentioned in HPI NEUROLOGICAL: No headaches, no weakness, no numbness. HEMATOLOGICAL: Denies any bleeding or petechiae. GENITOURINARY: Denies any burning micturition, frequency, or urgency. MUSCULOSKELETAL/RHEUMATOLOGICAL: Denies any joint pain, swelling, or any muscle pain. ENDOCRINE: Denies any polyuria or polydipsia. The rest of the 14-point review of systems is negative. Past Medical History Past Medical History: Neurologic Disorder Additional Past Medical History / Comment(s): MS with diagnosis at age 17 [address] richardson History of Any Multi-Drug Resistant Organisms: None Reported Past Surgical History: No Surgical Hx Reported Past Anesthesia/Blood Transfusion Reactions: No Reported Reaction Past Psychological History: No Psychological Hx Reported Smoking Status: Never smoker Past Alcohol Use History: Occasional Past Drug Use History: None Reported - Past Family History Mother Family Medical History: Hypertension Father Family Medical History: No Reported History Medications and Allergies Home Medications Medication Instructions Recorded Confirmed Type No Known Home Medications [No 11/27/16 06/29/17 History Known Home Medications] Allergies Allergy/AdvReac Type Severity Reaction Status Date / Time No Known Allergies Allergy Verified 06/29/17 17:57 Physical Exam Vitals: Vital Signs Temp Pulse Pulse Resp BP BP Pulse Ox 06/30/17 11:37 98.4 F 76 18 105/61 94 L 06/30/17 08:10 98.0 F 75 17 108/64 96 06/29/17 21:25 98.2 F 71 16 118/70 96 06/29/17 20:32 98.0 F 70 16 102/52 96 06/29/17 19:16 70 16 93/58 100 06/29/17 18:49 71 16 108/58 98 06/29/17 17:14 97.2 F L 74 18 111/75 97 Intake and Output 06/29/17 06/30/17 06/30/17 22:59 06:59 14:59 Intake Total 600 580 Balance 600 580 Intake: Oral 600 580 Other: # Voids 1 1 1 Weight 99.79 kg PHYSICAL EXAMINATION: GENERAL: The patient is alert and oriented x3, not in any acute distress. Well developed, well nourished. HEENT: Pupils are round and equally reacting to light. EOMI. No scleral icterus. No conjunctival pallor. Normocephalic, atraumatic. No pharyngeal erythema. No thyromegaly. CARDIOVASCULAR: S1 and S2 present. No murmurs, rubs, or gallops. PULMONARY: Chest is clear to auscultation, no wheezing or crackles. ABDOMEN: Soft, minimal tenderness in the periodic leg area nondistended, normoactive bowel sounds. No palpable organomegaly. MUSCULOSKELETAL: No joint swelling or deformity. EXTREMITIES: No cyanosis, clubbing, or pedal edema. NEUROLOGICAL: Gross neurological examination did not reveal any focal deficits. SKIN: No rashes. Results CBC & Chem 7: 06/29/17 18:02 06/29/17 18:02 Labs: Abnormal Lab Results - Last 24 Hours (Table) 06/29/17 06/29/17 Range/Units 18:02 19:15 Glucose 103 H (74-99) mg/dL Urine Appearance Cloudy H (Clear) Urine Nitrite Positive H (Negative) Ur Leukocyte Esterase Small H (Negative) Urine WBC 7 H (0-5) /hpf Urine Bacteria Many H (None) /hpf Urine Mucus Occasional H (None) /hpf Microbiology - Last 24 Hours (Table) 06/29/17 19:15 Urine Culture - Preliminary Urine,Voided Assessment and Plan Plan: -Abdominal pain: Probably related to intussusception or internal hernia, patient will undergo expiratory laparotomy. Pain management as per primary service -Asymbptomatic bacteriuria: Patient doesn't have any urinary tract infection will not require antibiotics from this perspective although patient is on ampicillin for step sore throat -Strep pharyngitis -Hypothyroidism continue with levo-thyroxine
[2017-06-30 17:12] VITALS: BP 92/52; PULSE 86; RESP 20; TEMP 98.2
--- NOTE | 2017-06-30 18:00 | P.CONS ---
History of Present Illness - Reason for Consult Consult date: 06/30/17 MS exacerbation - Chief Complaint MS exacerbation - History of Present Illness This is a pleasant 21-year-old female being evaluated by the neurology service for MS exacerbation. Her presenting symptoms were similar to previous exacerbations. She experiences vertigo dizziness and vision changes. She also has some lower extremity weakness. This time she did have some alteration of consciousness. He was brought to [facility] emergency room and given a dose of IV Solu-Medrol. She has been receiving IV Solu-Medrol 250 mg every 6 hours. Her symptoms are resolving. She used to be on Tecfidera she stopped it shortly before becoming and never restarted. She has been off medication for over 2 years. Her last MRI did show increasing size of a white matter lesion. She has been postponing getting back into our office to resume MS medication. At the time of my exam she is resting comfortably in bed in no acute distress. Review of Systems All systems: negative Constitutional: Reports as per HPI Past Medical History Past Medical History: Neurologic Disorder Additional Past Medical History / Comment(s): MS with diagnosis at age 17 [address] richardson History of Any Multi-Drug Resistant Organisms: None Reported Past Surgical History: No Surgical Hx Reported Past Anesthesia/Blood Transfusion Reactions: No Reported Reaction Past Psychological History: No Psychological Hx Reported Smoking Status: Never smoker Past Alcohol Use History: Occasional Past Drug Use History: None Reported - Past Family History Mother Family Medical History: Hypertension Father Family Medical History: No Reported History Medications and Allergies Home Medications Medication Instructions Recorded Confirmed Type No Known Home Medications [No 11/27/16 06/29/17 History Known Home Medications] Allergies Allergy/AdvReac Type Severity Reaction Status Date / Time No Known Allergies Allergy Verified 06/29/17 17:57 Physical Exam Vitals: Vital Signs Temp Pulse Pulse Pulse Resp BP BP 06/30/17 16:03 98.2 F 86 20 92/52 06/30/17 11:37 98.4 F 76 18 105/61 06/30/17 08:10 98.0 F 75 17 108/64 06/29/17 21:25 98.2 F 71 16 118/70 06/29/17 20:32 98.0 F 70 16 102/52 06/29/17 19:16 70 16 93/58 06/29/17 18:49 71 16 108/58 Pulse Ox 06/30/17 16:03 96 06/30/17 11:37 94 L 06/30/17 08:10 96 06/29/17 21:25 96 06/29/17 20:32 96 06/29/17 19:16 100 06/29/17 18:49 98 Intake and Output 06/30/17 06/30/17 06/30/17 06:59 14:59 22:59 Intake Total 1160 Balance 1160 Intake: Oral 1160 Other: # Voids 1 1 - Constitutional General appearance: cooperative, no acute distress, obese - EENT Eyes: no abnormal pupil, EOMI, PERRLA, no ptosis ENT: hearing grossly normal - Neck Neck: normal ROM, no rigidity - Respiratory Respiratory: negative: prolonged expiration, prolonged inspiration - Cardiovascular Rhythm: regular - Gastrointestinal General gastrointestinal: no distended, no tenderness - Neurologic The patient is alert awake and oriented 3. Speech and language are normal. There is no facial asymmetry. Strength is 5 out of 5 in bilateral upper and lower extremities. There is no sensory deficit. No tremors or seizures are seen. Cranial nerves II through XII are intact globally. 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 Code(s): H51.20 - INTERNUCLEAR OPHTHALMOPLEGIA, UNSPECIFIED EYE SNOMED Code(s): 42590277 (3) Leg weakness, bilateral Current Visit: Yes Status: Resolved Code(s): R29.898 - OTH SYMPTOMS AND SIGNS INVOLVING THE MUSCULOSKELETAL SYSTEM SNOMED Code(s): 9188861 (4) Dizziness Current Visit: Yes Status: Acute Code(s): R42 - DIZZINESS AND GIDDINESS SNOMED Code(s): 759319653 (5) Exacerbation of multiple sclerosis Current Visit: Yes Status: Chronic Code(s): G35 - MULTIPLE SCLEROSIS SNOMED Code(s): 486334713 Plan: This young woman with a known diagnosis of multiple sclerosis is experiencing an exacerbation. We will continue IV steroids. We did discuss continuing this at our office in the infusion center. Due to her alteration of consciousness during the initial portion of her episode I would like an EEG to be performed. We can do this in outpatient setting also. Recommend physical and occupational therapy evaluation. She is to call the office on Monday morning and we will fit her in for IV steroid infusions. In the meantime I will give her 60 mg daily oral prednisone to take after discharge and until we can get her in for IV steroids. I will continue to follow him she still hear otherwise we will follow her up in the clinic were we can restart appropriate MS medication. I have performed a history and physical on the above patient. I have reviewed the above note, and agree.
[2017-06-30] MEDS: SODIUM CHLORIDE 0.9% 1,000 ML IV SCH (18:38)
[2017-06-30] MEDS ORDERED: cefTRIAXone IN SWFI 1,000 MG/10 ML SYRINGE IVP SCH (21:00)
[2017-06-30 21:21] LABS: Glucose,Whole Blood 142 mg/dL (75-99)
--- NOTE | 2017-07-01 07:38 | ECHOF ---
Referral Reason:syncope MEASUREMENTS -------- HEIGHT: 167.6 cm WEIGHT: 99.3 kg BP: 105/61 RVIDd: 2.6 cm (< 3.3) IVSd: 1.0 cm (0.6 - 1.1) LVIDd: 4.2 cm (3.9 - 5.3) LVPWd: 1.0 cm (0.6 - 1.1) IVSs: 1.5 cm LVIDs: 2.0 cm LVPWs: 1.5 cm LAESV Index (A-L): 9.50 ml/m Ao Diam: 2.6 cm (2.0 - 3.7) AV Cusp: 2.2 cm (1.5 - 2.6) LA Diam: 2.8 cm (2.7 - 3.8) EPSS: 0.2 cm MV E Joe: 0.99 m/s MV DecT: 249 ms MV A Joe: 0.77 m/s MV E/A Ratio: 1.28 RAP: 5.00 mmHg RVSP: 11.02 mmHg MV EF SLOPE: 83.23 mm/s (70 - 150) MV EXCURSION: 1.49 cm (> 18.000) FINDINGS -------- Sinus rhythm. This was a technically difficult study with suboptimal views. The left ventricular size is normal. Left ventricular wall thickness is normal. Overall left vent ricular systolic function is normal with, an EF between 55 - 60 %. The right ventricle is normal in size and function. Normal LA size by volume 22+/-6 ml/m2. The right atrium was not well visualized. 2ml of Lumason was utilized for enhancement of images. The aortic valve is trileaflet, and appears structurally normal. No aortic stenosis or regurgitation. The mitral valve is normal. There is trace mitral regurgitation. Trace tricuspid regurgitation present. Right ventricular systolic pressure is normal at < 35 mmHg. There is no evidence of pulmonary hypertension. Trace/mild (physiologic) pulmonic regurgitation. The aortic root size is normal. Normal inferior vena cava with normal inspiratory collapse consistent with estimated right atrial pre ssure of 5 mmHg. The pericardium is normal. There is no pericardial effusion. CONCLUSIONS -------- 1. Sinus rhythm. 2. This was a technically difficult study with suboptimal views. 3. The left ventricular size is normal. 4. Left ventricular wall thickness is normal. 5. Overall left ventricular systolic function is normal with, an EF between 55 - 60 %. 6. Normal LA size by volume 22+/-6 ml/m2. 7. The right atrium was not well visualized. 8. 2ml of Lumason was utilized for enhancement of images. 9. The aortic valve is trileaflet, and appears structurally normal. No aortic stenosis or regurgitati on. 10. There is trace mitral regurgitation. 11. Trace tricuspid regurgitation present. 12. Right ventricular systolic pressure is normal at < 35 mmHg. 13. There is no evidence of pulmonary hypertension. 14. Trace/mild (physiologic) pulmonic regurgitation. 15. The aortic root size is normal. 16. There is no pericardial effusion. SUBCONTRACT MANAGER: Amador Baker RDCS
== END 2017-06-30 21:21 | disposition home or self-care (01) ==
LOC: EC 17:12 → 6PED 20:27
PROVIDERS: ADMIT Internal Medicine; ATTEND Internal Medicine
DX: G35 Multiple sclerosis (principal); J02.0 Streptococcal pharyngitis; H51.20 Internuclear ophthalmoplegia, unspecified eye; R82.71 Bacteriuria; E66.9 Obesity, unspecified; Z68.35 Body mass index [BMI] 35.0-35.9, adult; R10.33 Periumbilical pain; E03.9 Hypothyroidism, unspecified; Z82.49 Family history of ischemic heart disease and other diseases of the circulatory system
CPT/HCPCS: 99285 ×2; 96365 ×2; 96366 ×4; 96375 ×4; 36415; 93005; 80053; 85025; 81001; 84702; 87086; 87077; 87186; G0378 ×2; C8929; J2930 ×3; J2405; J0696; J1885; Q9950; 93306

== ENCOUNTER → 2017-12-21 | Outpatient (CLI) | payer OTHER ==
--- NOTE | 2017-12-21 12:12 | USB ---
Reason for exam: clinical finding. History: Family history of breast cancer in grandmother and breast cancer in maternal aunt. Indicated problem(s): palpable abnormality in the right breast. Physical Findings: Nurse Summary: lump x 1 month, [facility] discharge 2 weeks ago (nurse kp). US Breast RT Right complete breast ultrasound includes all four quadrants, the retroareolar region and axilla. Finding demonstrates a axilla node, prominent but benign right axillary lymph node. These results were verbally communicated with the patient and result sheet given to the patient on 12/21/17. ASSESSMENT: Benign, BI-RAD 2 RECOMMENDATION: Clinical management of the right breast. Manage patient on a clinical basis.
== END | disposition home or self-care (01) ==
LOC: RADUSWWP 08:56
PROVIDERS: ATTEND Family Medicine
DX: N63.10 Unspecified lump in the right breast, unspecified quadrant (principal)

== ENCOUNTER → 2019-03-28 | Outpatient (CLI) | payer OTHER | END | disposition home or self-care (01) | LOC: RADMRIMAIN 14:31 | PROVIDERS: ATTEND Family Medicine | DX: Z53.9 Procedure and treatment not carried out, unspecified reason (principal) ==

== ENCOUNTER → 2019-05-28 | Outpatient (CLI) | payer OTHER | END | disposition home or self-care (01) | LOC: RADMRIMAIN 07:26 | PROVIDERS: ATTEND Family Medicine | DX: Z53.9 Procedure and treatment not carried out, unspecified reason (principal) ==

== ENCOUNTER 2019-06-12 11:56 | Emergency (ER) | payer OTHER ==
[2019-06-12 12:01] VITALS: BP 126/88; TEMP 98.2
[2019-06-12] MEDS ORDERED: ONDANSETRON ODT 4 MG TAB PO STA (12:49)
[2019-06-12] MEDS ORDERED: LORazepam 1 MG TAB PO STA (12:49)
--- NOTE | 2019-06-12 12:59 | ED ---
SOB HPI - General Chief Complaint: Shortness of Breath Stated Complaint: SOB Time Seen by Provider: 06/12/19 12:18 Source: patient, RN notes reviewed Mode of arrival: ambulatory Limitations: no limitations - History of Present Illness Initial Comments: This a 23-year-old female presents emergency Department chief complaint of shortness of breath. Patient states that she has been very stressed, very anxious. Patient states the shortness breath wax and wanes with her stress level. Patient feels like she is having panic attacks. Patient denies any fevers or chills cough congestion no URI symptoms. No history of asthma or COPD. Patient denies any abdominal complaints. No headache no dizziness. - Related Data Home Medications Medication Instructions Recorded Confirmed predniSONE [Deltasone] 60 mg PO DAILY 06/30/17 06/30/17 Previous Rx's Medication Instructions Recorded ALPRAZolam [Xanax] 0.5 mg PO TID PRN #9 tablet 06/12/19 Allergies Allergy/AdvReac Type Severity Reaction Status Date / Time No Known Allergies Allergy Verified 06/12/19 12:01 Review of Systems ROS Statement: Those systems with pertinent positive or pertinent negative responses have been documented in the HPI. ROS Other: All systems not noted in ROS Statement are negative. Past Medical History Past Medical History: Neurologic Disorder Additional Past Medical History / Comment(s): MS with diagnosis at age 17 [address] richardson History of Any Multi-Drug Resistant Organisms: None Reported Past Surgical History: No Surgical Hx Reported Past Anesthesia/Blood Transfusion Reactions: No Reported Reaction Past Psychological History: No Psychological Hx Reported Smoking Status: Never smoker Past Alcohol Use History: Occasional Past Drug Use History: None Reported - Past Family History Mother Family Medical History: Hypertension Father Family Medical History: No Reported History General Exam Limitations: no limitations General appearance: alert, in no apparent distress Head exam: Present: atraumatic, normocephalic, normal inspection Eye exam: Present: normal appearance, PERRL, EOMI. Absent: scleral icterus, conjunctival injection, periorbital swelling ENT exam: Present: normal exam, normal oropharynx, mucous membranes moist Neck exam: Present: normal inspection, full ROM. Absent: tenderness, m eningismus, lymphadenopathy Respiratory exam: Present: normal lung sounds bilaterally, prolonged expiratory. Absent: respiratory distress, wheezes, rales, rhonchi, stridor, decreased breath sounds Cardiovascular Exam: Present: regular rate, normal rhythm, normal heart sounds. Absent: systolic murmur, diastolic murmur, rubs, gallop, clicks GI/Abdominal exam: Present: soft, normal bowel sounds. Absent: distended, tenderness, guarding, rebound, rigid Neurological exam: Present: alert, oriented X3, CN II-XII intact Psychiatric exam: Present: anxious Skin exam: Present: warm, dry, intact, normal color. Absent: rash Course Vital Signs 06/12/19 11:59 Temperature 98.2 F Pulse Rate 93 Respiratory 18 Rate Blood Pressure 126/88 O2 Sat by Pulse 99 Oximetry Medical Decision Making - Medical Decision Making 23-year-old female presented for intermittent shortness of breath, anxiety issues. Patient states she is very stressed because she is getting . Patient does feel improved after Ativan. Patient had a short course of benzodiazepines. She does not feel suicidal or homicidal. Patient was given resources return parameters were discussed. Disposition Clinical Impression: Anxiety Disposition: HOME SELF-CARE Condition: Stable Instructions (If sedation given, give patient instructions): Generalized Anxiety Disorder (ED) Additional Instructions: Please return to the Emergency Department if symptoms worsen or any other concerns. Prescriptions: ALPRAZolam [Xanax] 0.5 mg PO TID PRN #9 tablet PRN Reason: anxiety Is patient prescribed a controlled substance at d/c from ED?: Yes When asked, does pt state using other controlled substances?: No If prescribed controlled substance>3 days was MAPS reviewed?: Prescribed <3 Days Referrals: Katherine Allen MD [Primary Care Provider] - 1-2 days Time of Disposition: 14:08
--- NOTE | 2019-06-12 13:05 | XR ---
EXAMINATION TYPE: XR chest 2V DATE OF EXAM: 06/12/2019 COMPARISON: NONE HISTORY: Shortness of breath and chest pain TECHNIQUE: Frontal and lateral views of the chest are obtained. FINDINGS: There is no focal air space opacity, pleural effusion, or pneumothorax seen. The cardiac silhouette size is within normal limits. The osseous structures are intact. There is a slight pectu s excavatum deformity. IMPRESSION: No acute cardiopulmonary process.
[2019-06-12 14:17] VITALS: PULSE 82; RESP 16
== END 2019-06-12 14:17 | disposition home or self-care (01) ==
LOC: EC 11:56
DX: F41.9 Anxiety disorder, unspecified (principal); R06.02 Shortness of breath; G35 Multiple sclerosis; Z79.52 Long term (current) use of systemic steroids
CPT/HCPCS: 71046; 99284

== ENCOUNTER 2019-11-28 13:27 | Emergency (ER) | payer OTHER ==
[2019-11-28 13:40] VITALS: BP 117/71; PULSE 70; RESP 18; TEMP 98
--- NOTE | 2019-11-28 14:15 | XR ---
EXAMINATION TYPE: XR elbow complete LT DATE OF EXAM: 11/28/2019 COMPARISON: NONE HISTORY: Pain FINDINGS: Three views of the elbow demonstrate no pathologic joint effusion. The osseous structures are intact . There is no acute fracture or dislocation. Radiopaque linear density anterior to the humerus on t he lateral view may be superficial patient should be correlated clinically. IMPRESSION: 1. No acute fracture or dislocation. If symptoms persist follow-up study in 7 to 10 days could be ob tained.
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
== END 2019-11-28 14:37 | disposition home or self-care (01) ==
LOC: EC 13:27
DX: S50.02XA Contusion of left elbow, initial encounter (principal); Z79.52 Long term (current) use of systemic steroids; G35 Multiple sclerosis; V94.0XXA Hitting object or bottom of body of water due to fall from watercraft, initial encounter; Y93.89 Activity, other specified; Y92.89 Other specified places as the place of occurrence of the external cause
CPT/HCPCS: 99283

== ENCOUNTER 2020-04-04 13:56 | Emergency (ER) | payer OTHER ==
[2020-04-04 14:40] VITALS: BP 131/86; PULSE 86; RESP 20; TEMP 98.9
[2020-04-04] MEDS ORDERED: AMOXIC-POT CLAV 875-125MG 1 EACH TAB PO STA (14:57)
[2020-04-04] MEDS ORDERED: ACET/COD 300 MG/30 MG STARTER PACK 6 TAB BTL PO STA (14:57)
--- NOTE | 2020-04-04 14:57 | ED ---
ENT HPI - General Chief complaint: Dental/Oral Stated complaint: Oral pain Time Seen by Provider: 04/04/20 14:41 Source: patient Mode of arrival: ambulatory Limitations: no limitations - History of Present Illness Initial comments: 24-year-old female presenting to the emergency department with a chief complaint of dental pain. States this has been ongoing for past week. States that she had a filling that fell off the left upper region of her mouth. States now there is some swelling after she woke up this morning on the left side of her face. Patient denies history of diabetes. States the tooth is very tender. Denies any night sweats fevers or chills. Denies any difficulty swallowing or breathing. - Related Data Home Medications Medication Instructions Recorded Confirmed predniSONE [Deltasone] 60 mg PO DAILY 06/30/17 06/30/17 Previous Rx's Medication Instructions Recorded ALPRAZolam [Xanax] 0.5 mg PO TID PRN #9 tablet 06/12/19 Ibuprofen [Motrin] 600 mg PO Q8HR PRN #20 tab 11/28/19 Allergies Allergy/AdvReac Type Severity Reaction Status Date / Time No Known Allergies Allergy Verified 04/04/20 14:40 Review of Systems ROS Statement: Those systems with pertinent positive or pertinent negative responses have been documented in the HPI. ROS Other: All systems not noted in ROS Statement are negative. Past Medical History Past Medical History: Neurologic Disorder Additional Past Medical History / Comment(s): MS with diagnosis at age [address] richardson History of Any Multi-Drug Resistant Organisms: None Reported Past Surgical History: No Surgical Hx Reported Past Anesthesia/Blood Transfusion Reactions: No Reported Reaction Past Psychological History: No Psychological Hx Reported Smoking Status: Never smoker Past Alcohol Use History: Occasional Past Drug Use History: Marijuana - Past Family History Mother Family Medical History: Hypertension Father Family Medical History: No Reported History General Exam Limitations: no limitations General appearance: alert, in no apparent distress, obese Head exam: Present: atraumatic, normocephalic, normal inspection Eye exam: Present: normal appearance, PERRL, EOMI Pupils: Present: normal accommodation ENT exam: Present: normal exam, mucous membranes moist, TM's normal bilaterally, normal external ear exam. Absent: normal oropharynx (Missing filling of the tooth #13. Mild surrounding erythema. Partly swelling of the left side of the face. No other lesions noted in the oral cavity.) Neck exam: Present: normal inspection, full ROM. Absent: tenderness Respiratory exam: Present: normal lung sounds bilaterally. Absent: respiratory distress, wheezes, rales Cardiovascular Exam: Present: regular rate, normal rhythm, normal heart sounds. Absent: systolic murmur, diastolic murmur GI/Abdominal exam: Present: soft. Absent: distended, tenderness, guarding, rebound Extremities exam: Present: normal inspection, full ROM, normal capillary refill. Absent: tenderness, calf tenderness Back exam: Present: normal inspection, full ROM. Absent: tenderness Neurological exam: Present: alert, oriented X3, CN II-XII intact, normal gait Psychiatric exam: Present: normal affect, normal mood Skin exam: Present: warm, dry, intact, normal color Course Vital Signs 04/04/20 14:38 Temperature 98.9 F Pulse Rate 86 Respiratory 20 Rate Blood Pressure 131/86 O2 Sat by Pulse 97 Oximetry Medical Decision Making - Medical Decision Making 24-year-old male presenting to emergency Department with chief complaint abdominal pain. No signs of periapical abscess. She does have dental filling missing in tooth #13. A curtis will be given Tylenol 3 starter pack. Will be started on Augmentin. Advised to follow-up with a dentist. She was given resources regarding budget/free dental clinics in the region. Strict return parameters were thoroughly discussed the patient was standing ago. Case discussed with physician. Disposition Clinical Impression: Pain, dental Disposition: HOME SELF-CARE Condition: Stable Instructions (If sedation given, give patient instructions): Toothache (ED) Additional Instructions: Follow-up with a dentist. Take her strep medication as directed. Return to emergency department if symptoms worsen. Is patient prescribed a controlled substance at d/c from ED?: No Referrals: Katherine Allen MD [Primary Care Provider] - 1-2 days Time of Disposition: 14:57
== END 2020-04-04 15:23 | disposition home or self-care (01) ==
LOC: EC 13:56
DX: K08.89 Other specified disorders of teeth and supporting structures (principal); R10.9 Unspecified abdominal pain; G35 Multiple sclerosis; Z79.52 Long term (current) use of systemic steroids
CPT/HCPCS: 99282

== ENCOUNTER 2021-12-20 17:41 | Emergency (ER) | payer OTHER ==
[2021-12-20 17:59] VITALS: TEMP 98.1
[2021-12-20 21:40] VITALS: BP 99/72; PULSE 80; RESP 18
--- NOTE | 2021-12-20 21:45 | ED ---
General Adult HPI - General Chief complaint: Chest Pain Stated complaint: chest pains Time Seen by Provider: 12/20/21 21:43 Source: patient, RN notes reviewed, old records reviewed Mode of arrival: ambulatory Limitations: no limitations - History of Present Illness Initial comments: 26-year-old female presenting for evaluation of right-sided chest pain radiating to the right shoulder blade. Pain again at rest. No associated dyspnea but the pain is worse with deep inspiration. No vomiting. No diaphoresis. No previous history of DVT, PE, CAD. Pain is improved from the onset which was about 4 hours prior to my evaluation. No fever. No cough. - Related Data Home Medications Medication Instructions Recorded Confirmed predniSONE [Deltasone] 60 mg PO DAILY 06/30/17 06/30/17 Previous Rx's Medication Instructions Recorded ALPRAZolam [Xanax] 0.5 mg PO TID PRN #9 tablet 06/12/19 Ibuprofen [Motrin] 600 mg PO Q8HR PRN #20 tab 11/28/19 Amoxicillin/Potassium Clav 1 tab PO Q12HR #20 tab 04/04/20 [Augmentin 875-125 Tablet] Allergies Allergy/AdvReac Type Severity Reaction Status Date / Time No Known Allergies Allergy Verified 12/20/21 17:59 Review of Systems ROS Statement: Those systems with pertinent positive or pertinent negative responses have been documented in the HPI. ROS Other: All systems not noted in ROS Statement are negative. Past Medical History Past Medical History: Neurologic Disorder Additional Past Medical History / Comment(s): MS with diagnosis at age 17 [address] cherry History of Any Multi-Drug Resistant Organisms: None Reported Past Surgical History: No Surgical Hx Reported Past Anesthesia/Blood Transfusion Reactions: No Reported Reaction Past Psychological History: No Psychological Hx Reported Smoking Status: Never smoker Past Alcohol Use History: Occasional Past Drug Use History: Marijuana - Past Family History Mother Family Medical History: Hypertension Father Family Medical History: No Reported History General Exam Limitations: no limitations General appearance: alert, in no apparent distress Head exam: Present: atraumatic, normocephalic Eye exam: Present: normal appearance, PERRL ENT exam: Present: normal exam Neck exam: Present: normal inspection. Absent: tenderness, meningismus Respiratory exam: Present: decreased breath sounds. Absent: respiratory distress, wheezes, rales, rhonchi Cardiovascular Exam: Present: regular rate, normal rhythm GI/Abdominal exam: Present: soft. Absent: distended, tenderness, guarding Extremities exam: Present: normal inspection, normal capillary refill. Absent: pedal edema, calf tenderness Neurological exam: Present: alert, oriented X3, CN II-XII intact, normal gait. Absent: motor sensory deficit Psychiatric exam: Present: normal affect, normal mood Skin exam: Present: warm, dry, intact. Absent: cyanosis, diaphoretic Course Vital Signs 12/20/21 12/20/21 17:56 21:38 Temperature 98.1 F Pulse Rate 74 80 Respiratory 16 18 Rate Blood Pressure 124/71 99/72 O2 Sat by Pulse 97 98 Oximetry EKG Findings - EKG Comments: EKG Findings:: EKG: Sinus rhythm rate of 81, no ST segment elevation, NH interval 135, QRS duration 98, QTC 4:15 Medical Decision Making - Medical Decision Making 26-year-old female with right-sided chest pain. Pain is atypical. Patient well-appearing with stable vitals. EKG sinus rhythm. Chest x-ray negative for pneumothorax or acute findings. Perform laboratory testing this was obtained at approximately 4 hours and 30 minutes after the onset of the patient's pain. This shows normal CBC, normal CMP, negative d-dimer, negative troponin. This represents a delay troponin testing increasing sensitivity. I have a low suspicion for cardiac disease in this patient however I am reassured by the lab testing. She is overall feeling better. She's given strict return parameters and will follow-up with her primary care physician. - Lab Data Result diagrams: 12/20/21 21:46 12/20/21 21:46 Lab Results 12/20/21 12/20/21 12/20/21 Range/Units 21:46 21:46 21:46 WBC 10.7 H (3.8-10.6) k/uL RBC 4.60 (3.80-5.40) m/uL Hgb 13.3 (11.4-16.0) gm/dL Hct 39.5 (34.0-46.0) % MCV 86.0 (80.0-100.0) fL MCH 29.0 (25.0-35.0) pg MCHC 33.8 (31.0-37.0) g/dL RDW 12.5 (11.5-15.5) % Plt Count 332 (150-450) k/uL MPV 7.3 Neutrophils % 53 % Lymphocytes % 39 % Monocytes % 3 % Eosinophils % 2 % Basophils % 1 % Neutrophils # 5.7 (1.3-7.7) k/uL Lymphocytes # 4.2 (1.0-4.8) k/uL Monocytes # 0.4 (0-1.0) k/uL Eosinophils # 0.2 (0-0.7) k/uL Basophils # 0.1 (0-0.2) k/uL PT 10.1 (9.0-12.0) sec INR 0.9 (<1.2) APTT 25.5 (22.0-30.0) sec D-Dimer 0.25 (<0.60) mg/L FEU Sodium 137 (137-145) mmol/L Potassium 3.6 (3.5-5.1) mmol/L Chloride 102 (98-107) mmol/L Carbon Dioxide 22 (22-30) mmol/L Anion Gap 13 mmol/L BUN 9 (7-17) mg/dL Creatinine 0.52 (0.52-1.04) mg/dL Est GFR (CKD-EPI)AfAm >90 (>60 ml/min/1.73 sqM) Est GFR (CKD-EPI)NonAf >90 (>60 ml/min/1.73 sqM) Glucose 124 H (74-99) mg/dL Calcium 9.5 (8.4-10.2) mg/dL Magnesium 1.8 (1.6-2.3) mg/dL Total Bilirubin 0.3 (0.2-1.3) mg/dL AST 27 (14-36) U/L ALT 35 H (4-34) U/L Alkaline Phosphatase 92 (38-126) U/L Troponin I (0.000-0.034) ng/mL Total Protein 7.9 (6.3-8.2) g/dL Albumin 4.5 (3.5-5.0) g/dL 12/20/21 Range/Units 21:46 WBC (3.8-10.6) k/uL RBC (3.80-5.40) m/uL Hgb (11.4-16.0) gm/dL Hct (34.0-46.0) % MCV (80.0-100.0) fL MCH (25.0-35.0) pg MCHC (31.0-37.0) g/dL RDW (11.5-15.5) % Plt Count (150-450) k/uL MPV Neutrophils % % Lymphocytes % % Monocytes % % Eosinophils % % Basophils % % Neutrophils # (1.3-7.7) k/uL Lymphocytes # (1.0-4.8) k/uL Monocytes # (0-1.0) k/uL Eosinophils # (0-0.7) k/uL Basophils # (0-0.2) k/uL PT (9.0-12.0) sec INR (<1.2) APTT (22.0-30.0) sec D-Dimer (<0.60) mg/L FEU Sodium (137-145) mmol/L Potassium (3.5-5.1) mmol/L Chloride (98-107) mmol/L Carbon Dioxide (22-30) mmol/L Anion Gap mmol/L BUN (7-17) mg/dL Creatinine (0.52-1.04) mg/dL Est GFR (CKD-EPI)AfAm (>60 ml/min/1.73 sqM) Est GFR (CKD-EPI)NonAf (>60 ml/min/1.73 sqM) Glucose (74-99) mg/dL Calcium (8.4-10.2) mg/dL Magnesium (1.6-2.3) mg/dL Total Bilirubin (0.2-1.3) mg/dL AST (14-36) U/L ALT (4-34) U/L Alkaline Phosphatase (38-126) U/L Troponin I <0.012 (0.000-0.034) ng/mL Total Protein (6.3-8.2) g/dL Albumin (3.5-5.0) g/dL Disposition Clinical Impression: Atypical chest pain Disposition: HOME SELF-CARE Condition: Good Instructions (If sedation given, give patient instructions): Chest Pain (ED) Is patient prescribed a controlled substance at d/c from ED?: No Referrals: Katherine Allen MD [Primary Care Provider] - 1-2 days Time of Disposition: 22:32
[2021-12-20 22:00] LABS: Basophils # (A) 0.1 k/uL (0-0.2); Basophils % (A) 1 %; Eosinophils # (A) 0.2 k/uL (0-0.7); Eosinophils % (A) 2 %; HCT 39.5 % (34.0-46.0); HGB 13.3 gm/dL (11.4-16.0); Lymphocytes # (A) 4.2 k/uL (1.0-4.8); Lymphocytes % (A) 39 %; MCHC 33.8 g/dL (31.0-37.0); Mean Platelet Volume 7.3; Monocytes # (A) 0.4 k/uL (0-1.0); Monocytes % (A) 3 %; Neutrophils # (A) 5.7 k/uL (1.3-7.7); Neutrophils % (A) 53 %; Platelet Count 332 k/uL (150-450); RDW 12.5 % (11.5-15.5); WBC 10.7 k/uL (3.8-10.6)
[2021-12-20 22:11] LABS: ALT 35 U/L (4-34); AST 27 U/L (14-36); African American GFR (CKD) >90 (>60 ml/min/1.73 sqM); Albumin 4.5 g/dL (3.5-5.0); Alkaline Phosphatase 92 U/L (38-126); Anion Gap 13 mmol/L; Blood Urea Nitrogen 9 mg/dL (7-17); Calcium 9.5 mg/dL (8.4-10.2); Carbon Dioxide 22 mmol/L (22-30); Chloride 102 mmol/L (98-107); Glucose 124 mg/dL (74-99); Magnesium 1.8 mg/dL (1.6-2.3); Non-African American GFR(CKD) >90 (>60 ml/min/1.73 sqM); Potassium 3.6 mmol/L (3.5-5.1); Sodium 137 mmol/L (137-145); Total Bilirubin 0.3 mg/dL (0.2-1.3); Total Protein 7.9 g/dL (6.3-8.2)
[2021-12-20 22:15] LABS: INR 0.9 (<1.2); Partial Thromboplastin Time 25.5 sec (22.0-30.0); Prothrombin Time 10.1 sec (9.0-12.0)
--- NOTE | 2021-12-20 22:26 | XR ---
EXAMINATION TYPE: XR chest 2V DATE OF EXAM: 12/20/2021 COMPARISON: NONE HISTORY: Chest pain TECHNIQUE: 2 views FINDINGS: Heart and mediastinum are normal. Lungs are clear. Diaphragm is normal. Bony thorax is inta ct. IMPRESSION: Normal chest.
== END 2021-12-20 22:51 | disposition home or self-care (01) ==
LOC: EC 17:41
DX: R07.89 Other chest pain (principal); F12.90 Cannabis use, unspecified, uncomplicated
CPT/HCPCS: 36415; 71046; 80053; 83735; 84484; 85025; 85379; 85610; 85730; 93005; 99285

== ENCOUNTER 2022-02-08 11:15 | Emergency (ER) | payer OTHER ==
[2022-02-08 12:59] LABS: Appearance,Urine Clear (Clear); Bacteria,Urine Many /hpf; Bilirubin,Urine Negative (Negative); Blood,Urine Negative (Negative); Color,Urine Yellow; Glucose,Urine (UA) Negative (Negative); Ketones,Urine Negative (Negative); Leukocyte Esterase,Urine Negative (Negative); Mucus,Urine Rare /hpf; Nitrite,Urine Positive (Negative); PH, Urine 6.5 (5.0-8.0); Protein,Urine Negative (Negative); Specific Gravity,Urine 1.021 (1.001-1.035); Squamous Epithelial Cell,Urine 1 /hpf (0-4); WBC,Urine 2 /hpf (0-5)
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
[2022-02-08 14:14] VITALS: BP 117/77; PULSE 79; RESP 17; TEMP 98.1
== END 2022-02-08 14:14 | disposition home or self-care (01) ==
LOC: EC 11:15
DX: S00.83XA Contusion of other part of head, initial encounter (principal); N39.0 Urinary tract infection, site not specified; W50.0XXA Accidental hit or strike by another person, initial encounter
CPT/HCPCS: 70450; 72125; 81001; 99284